=== PATIENT | female | born 1990 | race Caucasian/White ===

== ENCOUNTER 2016-07-06 21:32 | Inpatient (IN) | payer BC, OTHER ==
[~2016-07-06] VITALS: Ht 162.6 cm; Wt 61.7 kg
[~2016-07-06 21:32] MED LIST: PARO20TA3 PO; POTA20TA4 PO
[2016-07-06 21:45] VITALS: BP 106/58
[2016-07-06 22:20] LABS: BASO # 0.1 x10^3/uL (0.0-0.2); BASO % 1 % (0-3); EOS # 0.1 x10^3/uL (0.0-0.7); EOS % 1 % (0-3); HEMATOCRIT 41.1 % (36.0-47.0); HEMOGLOBIN 13.9 g/dL (12.0-15.5); LYMPH # 2.7 x10^3/uL (1.0-4.8); LYMPH % 27 % (24-48); MEAN CORPUSCULAR HEMOGLOBIN 31 pg (25-35); MEAN CORPUSCULAR HGB CONC 34 g/dL (31-37); MEAN CORPUSCULAR VOLUME 93 fL (79-100); MONO # 0.7 x10^3/uL (0.0-1.1); MONO % 7 % (0-9); NEUT # 6.4 x10^3uL (1.8-7.7); NEUT % 64 % (31-73); PLATELET COUNT 198 x10^3/uL (140-400); RED BLOOD COUNT 4.44 x10^6/uL (3.50-5.40); WHITE BLOOD COUNT 9.9 x10^3/uL (4.0-11.0)
--- NOTE | 2016-07-06 22:23 | EKG ---
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
[2016-07-06 22:35] LABS: ALBUMIN 4.5 g/dL (3.4-5.0); ALBUMIN/GLOBULIN RATIO 1.4 (1.0-1.7); CALCIUM 9.2 mg/dL (8.5-10.1); CREATININE 0.9 mg/dL (0.6-1.0); GFR 75.1; POTASSIUM 3.4 mmol/L (3.5-5.1); TOTAL BILIRUBIN 0.4 mg/dL (0.2-1.0); TOTAL PROTEIN 7.8 g/dL (6.4-8.2)
[2016-07-06] MEDS: IV NORMAL SALINE 1,000ML 1,000 ML IV SCH (23:28)
[2016-07-07] MEDS ORDERED: ALBU8.5H3 INH (00:37)
[2016-07-07] MEDS ORDERED: PROP20TA PO (00:37)
[2016-07-07] MEDS ORDERED: ALPR0.5T PO (00:37)
[2016-07-07 01:00] VITALS: BP 120/62
[2016-07-07 07:52] LABS: CALCIUM 8.6 mg/dL (8.5-10.1); CREATININE 0.7 mg/dL (0.6-1.0); GFR 100.4; POTASSIUM 3.7 mmol/L (3.5-5.1)
[2016-07-07] MEDS ORDERED: PAROXETINE 10 MG TABLET. PO SCH (09:00)
[2016-07-07] MEDS ORDERED: PROPRANOLOL 20 MG TABLET. PO SCH (09:00)
[2016-07-07] MEDS ORDERED: ONDANSETRON PF 4 MG/2 ML VIAL. IV PRN (10:00)
[2016-07-07] MEDS ORDERED: IOHEXOL 240 MG/ML 50ML VIAL. PO ONE (10:30)
[2016-07-07] MEDS ORDERED: CONTRAST GIVEN MC PRN (10:30)
[2016-07-07] MEDS ORDERED: IOHEXOL 300 MG/ML 75 ML VIAL. IV ONE (10:30)
[2016-07-07 12:30] VITALS: BP 112/68
--- NOTE | 2016-07-07 13:47 | RAD ---
CT of the abdomen and pelvis with contrast, 07/07/2016: History: Abdominal pain Multidetector CT imaging was performed following oral and IV administration of contrast. No hepatic abnormality is detected. The gallbladder is unremarkable. The pancreas cannot be clearly from the incompletely opacified bowel. No pancreatic mass is identified. The spleen is of normal size. No renal or adrenal abnormality is detected. The aorta is unremarkable. No abdominal or pelvic adenopathy is seen. An IUD is present centrally in the uterus. A small rim-like area of enhancement in the left adnexa is compatible with a collapsing ovarian cyst. It measures 2.1 cm. There is a trace amount of free fluid in the deep pelvis. This amount of fluid can be on a physiologic basis. The bowel loops are not dilated. The appendix is not clearly visualized. No dilated appendix or pericecal inflammatory process is seen. The urinary bladder is mildly distended. IMPRESSION: 1. An IUD is present in the uterus. 2. Small left ovarian cyst. 3. Tiny amount of free fluid in the pelvis which may be physiologic. 4. The abdomen and pelvis are otherwise unremarkable. PQRS Compliance Statement: One or more of the following individualized dose reduction techniques were utilized for this examination: 1. Automated exposure control 2. Adjustment of the mA and/or kV according to patient size 3. Use of iterative reconstruction technique
[2016-07-07] MEDS: IV NORMAL SALINE 1,000ML 1,000 ML IV SCH (13:57)
[2016-07-07 14:53] VITALS: BP 100/62
[2016-07-07 16:33] LABS: FREE T4 1.15 ng/dL (0.76-1.46); THYROID STIM HORMONE (TSH) 3.945 uIU/mL (0.358-3.740)
== END 2016-07-07 17:13 | disposition home or self-care (01) | DRG 392 ==
LOC: 1 SOUTH 21:32
PROVIDERS: ADMIT Family Medicine; ATTEND Family Medicine
DX: K52.9 Noninfective gastroenteritis and colitis, unspecified (principal); R42 Dizziness and giddiness; R00.0 Tachycardia, unspecified; R53.1 Weakness; F40.01 Agoraphobia with panic disorder; F41.9 Anxiety disorder, unspecified; E16.2 Hypoglycemia, unspecified; J45.909 Unspecified asthma, uncomplicated; F17.210 Nicotine dependence, cigarettes, uncomplicated
CPT/HCPCS: 36415; 74177; 80048; 80053; 83605; 83690; 84439; 84443; 84481; 85027; 85379; 93005; Q9966; Q9967; J7030

== ENCOUNTER → 2016-08-23 | Outpatient (CLI) | payer OTHER ==
[~2016-08-23] MED LIST changes: +ALBU8.5H8 INH; +ALPR0.5T PO; +PROP20TA PO
--- NOTE | 2016-08-23 09:50 | CARD ---
APPROVED REPORT EXAM: Two-dimensional and M-mode echocardiogram with Doppler and color Doppler. Other Information Quality : GoodHR: 80bpm Rhythm : NSR INDICATION Cardiac arrhythmia 2D DIMENSIONS RVDd2.4 (2.9-3.5cm)Left Atrium(2D)2.4 (1.6-4.0cm) IVSd0.9 (0.7-1.1cm)Aortic Root(2D)2.4 (2.0-3.7cm) LVDd4.2 (3.9-5.9cm)LVOT Diameter2.1 (1.8-2.4cm) PWd0.9 (0.7-1.1cm)LVDs2.7 (2.5-4.0cm) FS (%) 35.2 %SV50.4 ml LVEF(%)64.9 (>50%) Aortic Valve AoV Peak Rikki.125.2cm/sAoV VTI24.4cm AO Peak GR.6.3mmHgLVOT Peak Rikki.102.4cm/s LVOT VTI 21.51cmAO Mean GR.3mmHg COLT (VMAX)2.60az1WTI (VTI)2.92cm2 Mitral Valve MV E Gyvhirce83.2cm/sMV DECEL NQDK012sm MV A Rlvegipx80.2cm/sE/A Ratio1.2 MV A Qhogreca85uk Pulmonary Valve PV Peak Ptzwmots07.3cm/sPV Peak Grad.4mmHg Tricuspid Valve TR P. Gswsrnwm724kn/sTR Peak Gr.19mmHg Pulmonary Vein S1 Fyzbvsry70.8cm/sD2 Eyybzjst71.9cm/s LEFT VENTRICLE The left ventricle is normal size. There is normal left ventricular wall thickness. The left ventricu lar systolic function is normal and the ejection fraction is within normal range. The Ejection Fracti on is 55-60%. There is normal LV segmental wall motion. The left ventricular diastolic function and f illing is normal for age. RIGHT VENTRICLE The right ventricle is normal size. There is normal right ventricular wall thickness. The right ventr icular systolic function is normal. ATRIA The left atrium size is normal. The right atrium size is normal. The interatrial septum is intact wit h no evidence for an atrial septal defect or patent foramen ovale as noted on 2-D or Doppler imaging. AORTIC VALVE The aortic valve is normal in structure and function. Doppler and Color Flow revealed no significant aortic regurgitation. There is no significant aortic valvular stenosis. MITRAL VALVE The mitral valve is normal in structure and function. There is no evidence of mitral valve prolapse. There is no mitral valve stenosis. Doppler and Color Flow revealed no mitral valve regurgitation note d. TRICUSPID VALVE Doppler and Color Flow revealed physiologic tricuspid regurgitation.The pulmonary artery systolic pre ssure is estimated at 22 mmHg. PULMONIC VALVE Doppler and Color Flow revealed trace pulmonic valvular regurgitation. There is no pulmonic valvular stenosis. GREAT VESSELS The aortic root is normal in size. The ascending aorta is normal in size. The IVC is normal in size a nd collapses >50% with inspiration. PERICARDIAL EFFUSION There is no evidence of significant pericardial effusion. Critical Notification Critical Value: No <Conclusion> The left ventricular systolic function is normal and the ejection fraction is within normal range. Th e Ejection Fraction is 55-60%. There is normal LV segmental wall motion. No significant valvular disease. No obvious structural abnormalities noted.
== END | disposition home or self-care (01) ==
LOC: ECHO 08:20
PROVIDERS: ATTEND Internal Medicine Cardiovascular Disease
DX: I49.9 Cardiac arrhythmia, unspecified (principal); I07.1 Rheumatic tricuspid insufficiency; I31.3 Pericardial effusion (noninflammatory)
CPT/HCPCS: 93306

== ENCOUNTER 2016-09-13 16:16 | Emergency (ER) | payer OTHER ==
[~2016-09-13] VITALS: Ht 162.6 cm; Wt 61.7 kg
[2016-09-13 16:20] VITALS: BP 121/77
[2016-09-13] MEDS ORDERED: ONDANSETRON PF 4 MG/2 ML VIAL. IV ONE ×2 (17:45→19:30)
[2016-09-13] MEDS ORDERED: fentaNYL PF 100 MCG/2 ML VIAL IV ONE (17:45)
[2016-09-13] MEDS ORDERED: IV NORMAL SALINE 1,000ML 1,000 ML IV ONE (17:45)
--- NOTE | 2016-09-13 17:55 | PHYS DOC ---
General Chief Complaint: HEADACHE Stated Complaint: HEADACHE Time Seen by MD: 16:32 Source: patient Exam Limitations: no limitations Problems: (ADILENE MARTINEZ MD) Time Seen by MD: 19:09 Problems: (KOFFI WAY MD) History of Present Illness Initial Comments Patient with complaints of persistent headache for the last 7 days. Patient was sent over from her physicians office for further evaluation with CT and any pertinent blood work including a TSH. Patient states that she has been taking Ibuprofen 200-400mg at a time 2-3 x per day for the last 7 days. She states minimal to no relief with this medication. 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 She states that yesterday the pain was so intense that she took her 's hydrocodone 1/2 tablet and gave her moderate relief for 2 hours and then it recurred. Patient also states that she regularly uses Afrin nasal spray for nasal congestion. She states that she has had associated dizziness/lightheaded with episodes of spinning. She states that she has had tingling to the distal fingertips of all five fingers, without loss of motion and without loss of strength. She reports intermittent blurry vision. She denies visual loss.] Denies ear pain, drainage or loss of hearing. Denies any rash Denies any recent exposure to bug bites/ticks etc. She has intermittent nausea without emesis and no diarrhea. She denies abdominal pain or diarrhea She has the mirena and states she has had spotting bleeding for the last few weeks which she states is not normal for her. Timing/Duration: 1 week Severity/Quality: moderate, constant, pressure, throbbing (present to the frontal and temporal regions. Without radiation of the pain) Location: frontal, temporal Prior Headaches/Recent Trauma: no recent headache/trauma Modifying Factors: worse with exposure to light Associated Symptoms: fatigue, nasal congestion, vision changes (ADILENE MARTINEZ MD) Allergies: Coded Allergies: No Known Drug Allergies (Unverified , 11/25/15) Past Medical History Medical History: no pertinent history Surgical History: no surgical history, other (ADILENE MARTINEZ MD) Family History Significant Family History: no pertinent family hx (ADILENE MARTINEZ MD) Social History Alcohol: none Drugs: none (ADILENE MARTINEZ MD) Review of Systems Constitutional: malaise, weakness Eyes: denies blindness, blurred vision, denies decreased acuity, denies foreign body sensation, denies inflammation, denies pain, photophobia, denies previous injury, denies shadows Ears, Nose, Mouth, Throat: no symptoms reported Respiratory: no symptoms reported Cardiovascular: no symptoms reported Gastrointestinal: denies abdominal pain, denies constipation, denies diarrhea, nausea, denies vomiting Genitourinary: no symptoms reported Musculoskeletal: back pain (right lower back pain), denies joint pain, denies joint swelling, muscle stiffness (no associated joint pain) Skin: no symptoms reported Psychiatric/Neurological: anxiety (has had recent hospitalization for anxiety at [facility]. Recently started on propranolol and Xanax) All Other Systems: Reviewed and Negative (ADILENE MARTINEZ MD) Physical Exam General Appearance: WD/WN, no apparent distress HEENT: PERRL/EOMI, normal ENT inspection, TMs normal, pharynx normal Neck: non-tender, full range of motion, supple, normal inspection, trachea midline Cardiovascular: normal peripheral pulses, regular rate, rhythm, no edema, no gallop, no JVD, no murmur Respiratory: chest non-tender, lungs clear, normal breath sounds, no respiratory distress Gastrointestinal: normal bowel sounds, non tender, soft, no organomegaly Back: normal inspection, no CVA tenderness, no vertebral tenderness Extremities: normal range of motion, non-tender, normal inspection Psychiatric: alert, oriented x 3, depressed affect Cranial Nerves: normal hearing, normal speech, PERRL Coordination/Gait: normal finger to nose, normal gait, negative Romberg's sign Motor/Sensory: no motor deficit, no sensory deficit, no pronator drift, negative Babinski's sign Skin: warm/dry, normal color Lymphatic: no adenopathy (ADILENE MARTINEZ MD) Orders, Labs, Meds Patient has CT head pending. Labs pending IV medication and IV NS running. Reevaluation following resulting of all studies. Patient hand of to Dr. Way at 1800 (ADILENE MARTINEZ MD) Orders, Labs, Meds Return arrival reviewed vital signs, document of note, history from a prior physician progress note from the PA earlier today. Patient's CAT scan is negative patient slept her work is unremarkable urinalysis is still pending. Patient's headache is now returned is 3 of 10 same location of the right parietal lobe not worse of life at sudden onset but I went and talked to her about my treatment options and plan I do not use narcotics for the rebound phenomenon. Patient's typical experience. So we will go ahead and attempt Tylenol Toradol and some Benadryl. And see if she feels. Time nowPatient tells me that their sumptoms given during CC are improved. We reviewed labs and radiology reports with patient and any family at bedside. Patient's pain is now a 1 out of 10 at 8:08 PM patient was markedly better with IV Benadryl, Toradol and Tylenol. We'll provide the same to go home with. Urinalysis does states she is not . Impression tension headache possible narcotic rebound headache. Position: PCP follow-up 24-48 hours with neurology referral. Precautions given about possible other etiologies of headache and asked to return for increasing symptoms, focal neurologic deficits, or if she has any questions or concerns. (KOFFI WAY MD) ADILENE MARTINEZ MD Sep 13, 2016 17:[address] MD Sep 13, 2016 19:13
[2016-09-13 18:01] LABS: BASO % 1 % (0-3); EOS # 0.1 x10^3/uL (0.0-0.7); EOS % 1 % (0-3); HEMATOCRIT 39.9 % (36.0-47.0); HEMOGLOBIN 13.7 g/dL (12.0-15.5); LYMPH # 1.6 x10^3/uL (1.0-4.8); LYMPH % 17 % (24-48); MEAN CORPUSCULAR HEMOGLOBIN 31 pg (25-35); MEAN CORPUSCULAR HGB CONC 34 g/dL (31-37); MEAN CORPUSCULAR VOLUME 91 fL (79-100); MONO # 0.5 x10^3/uL (0.0-1.1); MONO % 5 % (0-9); NEUT # 7.3 x10^3uL (1.8-7.7); NEUT % 77 % (31-73); PLATELET COUNT 209 x10^3/uL (140-400); RED CELL DISTRIBUTION WIDTH 12.7 % (11.5-14.5); WHITE BLOOD COUNT 9.5 x10^3/uL (4.0-11.0)
--- NOTE | 2016-09-13 18:05 | RAD ---
Exam performed: CT scan of the head without contrast. Date of Service: 09/13/2016. Comparison: None available. Clinical History: Headache for one week with visual disturbance. Technique: Helical acquisitions are obtained from the foramen magnum to the vertex without intravenous administration of contrast. Findings: The ventricles are midline without evidence of dilatation. Normal whitehead-white differentiation is maintained. There is no extra axial fluid collection, intraparenchymal hemorrhage or mass lesion. The visualized portions of the orbits, paranasal sinuses and the mastoid air cells appear clear. The calvarium is intact. Impression: 1. No acute intracranial process detected. PQRS Compliance Statement: One or more of the following individualized dose reduction techniques were utilized for this examination: 1. Automated exposure control 2. Adjustment of the mA and/or kV according to patient size 3. Use of iterative reconstruction technique Electronically signed by: Lore Parish MD (09/13/2016 6:02 PM)
[2016-09-13 18:11] LABS: ALBUMIN 4.4 g/dL (3.4-5.0); ALBUMIN/GLOBULIN RATIO 1.3 (1.0-1.7); CALCIUM 9.3 mg/dL (8.5-10.1); CREATININE 0.8 mg/dL (0.6-1.0); POTASSIUM 3.5 mmol/L (3.5-5.1); TOTAL BILIRUBIN 0.3 mg/dL (0.2-1.0); TOTAL PROTEIN 7.7 g/dL (6.4-8.2)
[2016-09-13] MEDS ORDERED: DEXAMETHASONE SOD PHOS 10 MG/ML VIAL IV ONE (19:30)
[2016-09-13] MEDS ORDERED: diphenhydrAMINE 50 MG/ML VIAL IVP ONE (19:30)
[2016-09-13] MEDS ORDERED: KETOROLAC 30 MG/ML VIAL. IV ONE (19:30)
[2016-09-13] MEDS ORDERED: NAPR500T PO (19:56)
[2016-09-13] MEDS ORDERED: PROC10TA57 PO (19:56)
[2016-09-13 19:59] LABS: BACTERIA,URINE FEW /HPF (0-FEW); BILIRUBIN,URINE NEG (NEG); CLARITY,URINE CLEAR; COLOR,URINE YELLOW; GLUCOSE,URINE NEG (NEG); NITRITE,URINE NEG (NEG); RBC,URINE 0 /HPF (0-2); SQUAMOUS EPITHELIAL CELL,UR OCC /LPF; UROBILINOGEN,URINE 0.2 mg/dL (0.2 mg/dL); WBC,URINE OCC /HPF (0-4)
== END 2016-09-13 20:00 | disposition home or self-care (01) ==
LOC: ER 16:16
DX: G44.209 Tension-type headache, unspecified, not intractable (principal); R42 Dizziness and giddiness; R20.2 Paresthesia of skin; R11.0 Nausea
CPT/HCPCS: 36415; 70450; 80053; 81001; 81025; 84443; 85027; 96361; 96374; 96375; 96376; 99285; J1100; J1200; J1885; J2405; J3010; J7030

== ENCOUNTER 2017-03-25 19:46 | Emergency (ER) | payer OTHER ==
[~2017-03-25] VITALS: Ht 162.6 cm; Wt 63.0 kg
[~2017-03-25 19:46] MED LIST changes: +NAPR-683 PO; +PROC10TA57 PO
[2017-03-25] MEDS ORDERED: ONDANSETRON PF 4 MG/2 ML VIAL. IV ONE (20:45)
[2017-03-25] MEDS ORDERED: SUMAtriptan. 6 MG/0.5 ML VIAL SQ ONE (20:45)
[2017-03-25] MEDS ORDERED: IV RINGERS SOLUTION,LACTATED 1,000 ML IV SCH (20:45)
--- NOTE | 2017-03-25 20:45 | ED.ADGEN ---
Past History Past Medical History: Anxiety, Other Past Surgical History: No Surgical History Alcohol Use: None Drug Use: None Adult General Chief Complaint Chief Complaint "My migraine will not go away... HPI HPI Patient is a 26 year old female who presents with above hx and complaints. Pt. reports nausea and frontal scalp headache. Patient states it feels like a typical migraine except more severe and did not go away with Tylenol and ibuprofen. No history of trauma. 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 No recent travel. No history of trauma. Prior CTs have been normal. Prior workups for her migraines have been without etiology. Review of Systems Review of Systems Constitutional: Denies fever or chills [] Eyes: Nochange in visual acuity, redness, or eye pain. Photophobia HENT: Denies nasal congestion or sore throat [] Respiratory: Denies cough or shortness of breath [] Cardiovascular: No additional information not addressed in HPI [] GI: Denies abdominal pain, vomiting, bloody stools or diarrhea []nausea : Denies dysuria or hematuria [] Musculoskeletal: Denies back pain or joint pain [] Integument: Denies rash or skin lesions [] Neurologic: Denies headache, focal weakness or sensory changes [] Endocrine: Denies polyuria or polydipsia [] All other systems were reviewed and found to be within normal limits, except as documented in this note. Family History Family History Noncontributory Current Medications Current Medications Current Medications Medications (Trade) Dose Ordered Sig/Brant Start Time Stop Time Status Last Admin Dose Admin Diphenhydramine HCl (Benadryl) 25 mg 1X ONCE 03/25/17 21:00 03/25/17 21:01 DC 03/25/17 21:48 25 MG Ketorolac Tromethamine (Toradol) 30 mg 1X ONCE 03/25/17 23:15 03/25/17 23:21 DC 03/25/17 23:47 30 MG Lactated Ringer's 1,000 ml @ 1,000 mls/hr Q1H 03/25/17 20:45 03/25/17 21:56 DC 03/25/17 21:47 1,000 MLS/HR Ondansetron HCl (Zofran) 8 mg 1X ONCE 03/25/17 20:45 03/25/17 20:52 DC 03/25/17 21:47 8 MG Orphenadrine Citrate (Norflex) 60 mg 1X ONCE 03/26/17 00:45 03/26/17 01:34 DC 03/26/17 00:43 60 MG Sodium Chloride 50 ml @ As Directed STK-MED ONCE 03/25/17 22:20 03/25/17 22:21 DC Sumatriptan Succinate (Imitrex) 6 mg 1X ONCE 03/25/17 20:45 03/25/17 20:52 DC 03/25/17 21:48 6 MG Valproic Acid (Depacon) 500 mg STK-MED ONCE 03/25/17 21:43 03/25/17 21:44 DC Valproic Acid 500 mg/Sodium Chloride 55 ml @ 55 mls/hr 1X STAT 03/25/17 22:08 03/25/17 23:07 DC 03/25/17 22:08 55 MLS/HR Allergies Allergies Allergies Coded Allergies Type Severity Reaction Last Updated Verified No Known Drug Allergies 11/25/15 No Physical Exam Physical Exam Constitutional: Well developed, well nourished, in moderate distress, non-toxic appearance. [] HENT: Normocephalic, atraumatic, bilateral external ears normal, oropharynx moist, no oral exudates, nose normal. [] Eyes: PERRLA, EOMI, conjunctiva normal, no discharge. No field deficits. Fundus benign. Iris consensual light reflex. Neck: Normal range of motion, no tenderness, supple, no stridor. [] Cardiovascular:Heart rate regular rhythm, no murmur [] Lungs & Thorax: Bilateral breath sounds clear to auscultation [] Abdomen: Bowel sounds normal, soft, no tenderness, no masses, no pulsatile masses. [] Skin: Warm, dry, no erythema, no rash. [] Back: Lt Lumbar muscle tenderness, no CVA tenderness. [] Extremities: No tenderness, no cyanosis, no clubbing, ROM intact, no edema. [] Neurologic: Alert and oriented X 3, normal motor function, normal sensory function, no focal deficits noted. DTRs +2. Distal sensation intact. Psychologic: Affect normal, judgement normal, mood normal. [] Current Patient Data Lab Results Laboratory Tests Test 03/25/17 21:07 03/25/17 21:17 03/25/17 21:27 03/25/17 22:45 Urine Collection Type Unknown Urine Color Yellow Urine Clarity Hazy Urine pH 6.5 Urine Specific [place] 1.020 Urine Protein Neg (NEG-TRACE) Urine Glucose (UA) Neg mg/dL (NEG) Urine Ketones (Stick) 15 mg/dL (NEG) Urine Blood Neg (NEG) Urine Nitrite Neg (NEG) Urine Bilirubin Neg (NEG) Urine Urobilinogen Dipstick 1 mg/dL (0.2 mg/dL) Urine Leukocyte Esterase Neg (NEG) Urine RBC Occ /HPF (0-2) Urine WBC Occ /HPF (0-4) Urine Squamous Epithelial Cells Few /LPF Urine Bacteria 0 /HPF (0-FEW) Urine Mucus Slight /LPF Prothrombin Time 10.7 SEC (9.4-11.4) Prothrombin Time INR 1.0 (0.9-1.1) PTT 29 SEC (23-33) White Blood Count 7.8 x10^3/uL (4.0-11.0) Red Blood Count 4.26 x10^6/uL (3.50-5.40) Hemoglobin 13.2 g/dL (12.0-15.5) Hematocrit 39.1 % (36.0-47.0) Mean Corpuscular Volume 92 fL (79-100) Mean Corpuscular Hemoglobin 31 pg (25-35) Mean Corpuscular Hemoglobin Concent 34 g/dL (31-37) Red Cell Distribution Width 13.2 % (11.5-14.5) Platelet Count 221 x10^3/uL (140-400) Neutrophils (%) (Auto) 64 % (31-73) Lymphocytes (%) (Auto) 28 % (24-48) Monocytes (%) (Auto) 6 % (0-9) Eosinophils (%) (Auto) 1 % (0-3) Basophils (%) (Auto) 1 % (0-3) Neutrophils # (Auto) 5.0 x10^3uL (1.8-7.7) Lymphocytes # (Auto) 2.2 x10^3/uL (1.0-4.8) Monocytes # (Auto) 0.5 x10^3/uL (0.0-1.1) Eosinophils # (Auto) 0.1 x10^3/uL (0.0-0.7) Basophils # (Auto) 0.1 x10^3/uL (0.0-0.2) Erythrocyte Sedimentation Rate 2 (0-25) Maternal Serum HCG Beta Subunit < 1 mIU/mL (0-6) Sodium Level 144 mmol/L (136-145) Potassium Level 3.8 mmol/L (3.5-5.1) Chloride Level 106 mmol/L (98-107) Carbon Dioxide Level 27 mmol/L (21-32) Anion Gap 11 (6-14) Blood Urea Nitrogen 10 mg/dL (7-20) Creatinine 0.8 mg/dL (0.6-1.0) Estimated GFR (Cockcroft-Gault) 85.4 Glucose Level 88 mg/dL (70-99) Calcium Level 9.3 mg/dL (8.5-10.1) Total Bilirubin 0.2 mg/dL (0.2-1.0) Direct Bilirubin 0.1 mg/dL (0.0-0.2) Aspartate Amino Transferase (AST) 18 U/L (15-37) Alanine Aminotransferase (ALT) 21 U/L (14-59) Alkaline Phosphatase 48 U/L (46-116) Total Protein 7.5 g/dL (6.4-8.2) Albumin 4.3 g/dL (3.4-5.0) POC Urine HCG, Qualitative hcg negative (Negative) EKG EKG [] Radiology/Procedures Radiology/Procedures My interpretation CT head shows no mass, edema, shift, bleed, or fracture.[] Course & Med Decision Making Course & Med Decision Making Pertinent Labs and Imaging studies reviewed. (See chart for details). Push fluids. May take Imitrex 100 mg at the beginning headache. No more than 200 mg in a 24-hour period. Zofran 8 for nausea and vomiting.[] Up to 4 times a day. Vicoprofen up to 4 times a day for marked discomfort. Follow-up primary care. Final Impression Final Impression 1. Migraine[] Problems: Dragon Disclaimer Dragon Disclaimer This electronic medical record was generated, in whole or in part, using a voice recognition dictation system. HARIS LARA MD Mar 25, 2017 20:45
[2017-03-25] MEDS ORDERED: VALPROATE SODIUM 500 MG in IV NORMAL SALINE 50ML 50 ML IV STA ×2 (20:50→22:08)
[2017-03-25] MEDS ORDERED: diphenhydrAMINE 50 MG/ML VIAL IVP ONE (21:00)
--- NOTE | 2017-03-25 21:19 | RAD ---
CT Head without contrast 03/25/2017 Clinical Indication: Seizure , severe headache Comparison: CT head 09/13/2016 Technique: Multiple CT images of the head were obtained without contrast. *One or more of the following individualized dose reduction techniques were utilized for this examination: 1. Automated exposure control. 2. Adjustment of the mA and/or kV according to patient size. 3. Use of iterative reconstruction technique. Findings: Ventricles and subarachnoid spaces are normal in size and configuration. No midline shift or mass effect. No acute intracranial hemorrhage or extra-axial fluid collection. The whitehead-white matter interfaces are maintained. Impression: No acute intracranial hemorrhage. Electronically signed by: Zak Ritter MD (03/25/2017 9:16 PM) [facility]
[2017-03-25] MEDS ORDERED: VALPROATE SODIUM 500 MG/5 ML VIAL IV ONE (21:43)
[2017-03-25] MEDS ORDERED: IV NORMAL SALINE 50ML 50 ML ONE ×2 (21:43→22:20)
[2017-03-25 21:59] LABS: BASO # 0.1 x10^3/uL (0.0-0.2); BASO % 1 % (0-3); EOS # 0.1 x10^3/uL (0.0-0.7); EOS % 1 % (0-3); HEMATOCRIT 39.1 % (36.0-47.0); HEMOGLOBIN 13.2 g/dL (12.0-15.5); LYMPH # 2.2 x10^3/uL (1.0-4.8); LYMPH % 28 % (24-48); MEAN CORPUSCULAR HEMOGLOBIN 31 pg (25-35); MEAN CORPUSCULAR HGB CONC 34 g/dL (31-37); MEAN CORPUSCULAR VOLUME 92 fL (79-100); MONO # 0.5 x10^3/uL (0.0-1.1); MONO % 6 % (0-9); NEUT % 64 % (31-73); PLATELET COUNT 221 x10^3/uL (140-400); RED BLOOD COUNT 4.26 x10^6/uL (3.50-5.40); RED CELL DISTRIBUTION WIDTH 13.2 % (11.5-14.5); WHITE BLOOD COUNT 7.8 x10^3/uL (4.0-11.0)
[2017-03-25 22:03] LABS: ALBUMIN 4.3 g/dL (3.4-5.0); CALCIUM 9.3 mg/dL (8.5-10.1); CREATININE 0.8 mg/dL (0.6-1.0); DIRECT BILIRUBIN 0.1 mg/dL (0.0-0.2); GFR 85.4; POTASSIUM 3.8 mmol/L (3.5-5.1); TOTAL BILIRUBIN 0.2 mg/dL (0.2-1.0); TOTAL PROTEIN 7.5 g/dL (6.4-8.2)
[2017-03-25 22:21] LABS: CLARITY,URINE HAZY; COLOR,URINE YELLOW
[2017-03-25 22:22] LABS: BACTERIA,URINE 0 /HPF (0-FEW); BILIRUBIN,URINE NEG (NEG); GLUCOSE,URINE NEG (NEG); NITRITE,URINE NEG (NEG); RBC,URINE OCC /HPF (0-2); SQUAMOUS EPITHELIAL CELL,UR FEW /LPF; UROBILINOGEN,URINE 1 mg/dL (0.2 mg/dL); WBC,URINE OCC /HPF (0-4)
[2017-03-25] MEDS ORDERED: KETOROLAC 30 MG/ML VIAL. IV ONE (23:15)
[2017-03-26 00:10] LABS: SEDIMENTATION RATE 2 (0-25)
[2017-03-26] MEDS ORDERED: SUMA100T3 PO (00:12)
[2017-03-26] MEDS ORDERED: ONDA8TAB12 PO (00:12)
[2017-03-26] MEDS ORDERED: HYDR-79 PO (00:12)
[2017-03-26] MEDS ORDERED: ORPHENADRINE CITRATE 60 MG/2 ML VIAL. IV ONE (00:45)
[2017-03-26 01:25] VITALS: BP 114/66
== END 2017-03-26 02:30 | disposition home or self-care (01) ==
LOC: ER 19:46
DX: G43.909 Migraine, unspecified, not intractable, without status migrainosus (principal); F41.9 Anxiety disorder, unspecified
CPT/HCPCS: 36415; 70450; 80048; 80076; 81001; 81025; 84702; 85025; 85610; 85651; 85730; 96365; 96366; 96372; 96375; 99285; J1200; J1885; J2360; J2405; J3030; J3490; J7120

== ENCOUNTER 2017-05-09 19:30 | Emergency (ER) | payer OTHER ==
[~2017-05-09] VITALS: Ht 162.6 cm; Wt 62.6 kg
[~2017-05-09 19:30] MED LIST changes: +HYDR-79 PO; +ONDA8TAB12 PO; +SUMA100T3 PO
--- NOTE | 2017-05-09 20:44 | PHYS DOC ---
Past History Past Medical History: Anxiety, Depression, Migraines, Other Past Surgical History: No Surgical History Smoking: Cigarettes Alcohol Use: None Drug Use: None Adult General Chief Complaint Chief Complaint: FLU SYMPTOM HPI HPI 26-year-old male patient complaining of flulike symptoms for the last 3 days with subjective fever, productive cough with clear sputum, nasal congestion, shortness of breath during episodes of cough, generalized weakness and body ache , sore throat, nausea without vomiting and diarrhea. She had sick contacts at home and work. Review of Systems Review of Systems Constitutional: Reports fever and chills Eyes: Denies change in visual acuity, redness, or eye pain [] HENT: Postnasal congestion or sore throat Respiratory: Post cough and shortness of evidence Cardiovascular: No additional information not addressed in HPI [] GI: Denies abdominal pain,vomiting, bloody stools or diarrhea ,reports nausea[] : Denies dysuria or hematuria [] Musculoskeletal: Denies back pain or joint pain [] Integument: Denies rash or skin lesions [] Neurologic: Denies headache, focal weakness or sensory changes [] Endocrine: Denies polyuria or polydipsia [] All other systems were reviewed and found to be within normal limits, except as documented in this note. Allergies Allergies Allergies Coded Allergies Type Severity Reaction Last Updated Verified No Known Drug Allergies 11/25/15 No Physical Exam Physical Exam Constitutional: Well developed, well nourished, mild distress, non-toxic appearance. [] HENT: Normocephalic, atraumatic, bilateral external ears normal, oropharynx moist, pharyngeal erythema, no oral exudates, nose normal. [] Eyes: PERRLA, EOMI, conjunctiva normal, no discharge. [] Neck: Normal range of motion, no tenderness, supple, no stridor. [] Cardiovascular:Heart rate regular rhythm, no murmur [] Lungs & Thorax: Bilateral breath sounds clear to auscultation [] Abdomen: Bowel sounds normal, soft, no tenderness, no masses, no pulsatile masses. [] Skin: Warm, dry, no erythema, no rash. [] Back: No tenderness, no CVA tenderness. [] Extremities: No tenderness, no cyanosis, no clubbing, ROM intact, no edema. [] Neurologic: Alert and oriented X 3, normal motor function, normal sensory function, no focal deficits noted. [] Psychologic: Affect normal, judgement normal, mood normal. [] EKG EKG [] Radiology/Procedures Radiology/Procedures [] Course & Med Decision Making Course & Med Decision Making Pertinent reviewed. (See chart for details) [] Dragon Disclaimer Dragon Disclaimer This electronic medical record was generated, in whole or in part, using a voice recognition dictation system. Departure Departure: Impression: Primary Impression: Upper respiratory infection Additional Impression: Tobacco abuse counseling Disposition: HOME, SELF-CARE (at 210) Condition: STABLE Referrals: ADDIE ASCENCIO MD (PCP) Patient Instructions: Upper Respiratory Infection, Adult Additional Instructions: Drink plenty of liquids Follow-up with your primary care physician in 3-5 days Return to ER if not getting better Quit smoking Scripts Hydrocodone/Chlorphen P-Stirex (Tussionex Pennkinetic Susp) 115 Ml Burna.er.12h 5 ML PO BID Y for COUGH, #120 ML Prov: XENIA MENDENHALL MD 05/09/17 Problem Qualifiers XENIA MENDENHALL MD May 09, 2017 20:44
[2017-05-09 20:51] LABS: INFLUENZA A PATIENT NEGATIVE (NEGATIVE); INFLUENZA B PATIENT NEGATIVE (NEGATIVE)
[2017-05-09] MEDS ORDERED: BENZONATATE 100 MG CAPSULE. PO ONE (21:00)
[2017-05-09] MEDS ORDERED: HYDR115S2 PO (21:07)
[2017-05-09 21:26] VITALS: BP 111/60
== END 2017-05-09 21:26 | disposition home or self-care (01) ==
LOC: ER 19:30
DX: J06.9 Acute upper respiratory infection, unspecified (principal); F17.210 Nicotine dependence, cigarettes, uncomplicated; G43.909 Migraine, unspecified, not intractable, without status migrainosus; Z71.6 Tobacco abuse counseling
CPT/HCPCS: 87804; 99284

== ENCOUNTER 2017-05-25 19:00 | Emergency (ER) | payer OTHER ==
[~2017-05-25] VITALS: Ht 162.6 cm; Wt 62.6 kg
[~2017-05-25 19:00] MED LIST changes: +HYDR115S2 PO
--- NOTE | 2017-05-25 20:14 | PHYS DOC ---
Past History Past Medical History: Anxiety, Asthma, Depression, Migraines, Seizure, Other Past Surgical History: No Surgical History Smoking: Cigarettes Alcohol Use: None Drug Use: None Adult General Chief Complaint Chief Complaint: ANKLE PROBLEM HPI HPI Patient is a 26 year old female who presents with complaint of left ankle and foot pain. Patient states that she injured her ankle approximately one week ago. Patient states that she has been taking ibuprofen and Tylenol for her symptoms with no relief. Patient states that the pain is along the inner aspect of her right ankle extends towards the medial aspect of her right foot. The patient states that she is having pain with weightbearing. Patient did not receive medical attention upon initially injuring her foot, however since it has not gotten any better she came in to be evaluated today. Review of Systems Review of Systems Constitutional: Denies fever or chills [] Musculoskeletal: Left foot pain[] Integument: Denies rash or skin lesions [] Neurologic: Denies headache, focal weakness or sensory changes [] All other systems were reviewed and found to be within normal limits, except as documented in this note. Allergies Allergies Allergies Coded Allergies Type Severity Reaction Last Updated Verified No Known Drug Allergies 11/25/15 No Physical Exam Physical Exam Constitutional: Well developed, well nourished, no acute distress, non-toxic appearance. [] HENT: Normocephalic, atraumatic, bilateral external ears normal, oropharynx moist, no oral exudates, nose normal. [] Back: No tenderness, no CVA tenderness. [] Extremities: No obvious deformity to left foot or ankle, there is palpation along medial aspect of left foot along metatarsal, normal range of motion. [] Neurologic: Alert and oriented X 3, normal motor function, normal sensory function, no focal deficits noted. [] Current Patient Data Vital Signs Vital Signs Date Time Temp Pulse Resp B/P (MAP) Pulse Ox O2 Delivery O2 Flow Rate FiO2 05/25/17 19:00 98.4 86 18 99 Room Air Lab Results Not performed EKG EKG Not performed[] Radiology/Procedures Radiology/Procedures 3 view x-rays of left foot and left ankle interpreted by me: No fractures, normal alignment, normal soft tissue Course & Med Decision Making Course & Med Decision Making Pertinent Labs and Imaging studies reviewed. (See chart for details) Patient's x-rays negative. The patient's symptoms appear consistent with medial foot sprain. Advised to continue with Tylenol and weightbearing as tolerated. Patient was provided with crutches to assist with ambulation. Advised follow-up with orthopedic surgery in one week if symptoms are not improving. Advised return emergency department for any worsening symptoms. Patient voiced understanding and in agreement with treatment plan. Dragon Disclaimer Dragon Disclaimer This electronic medical record was generated, in whole or in part, using a voice recognition dictation system. Departure Departure: Impression: Primary Impression: Sprain of left foot Disposition: HOME, SELF-CARE Condition: STABLE Referrals: ADDIE ASCENCIO MD (PCP) Patient Instructions: Foot Sprain Additional Instructions: Follow-up with your primary doctor in 1 week if symptoms are not improving. Return to emergency department for any worsening symptoms. Problem Qualifiers Primary Impression: Sprain of left foot Encounter type: initial encounter Qualified Codes: S93.602A - Unspecified sprain of left foot, initial encounter HARSHA TAO MD May 25, 2017 20:14
[2017-05-25 20:26] VITALS: BP 109/61
--- NOTE | 2017-05-26 07:31 | RAD ---
3 views left foot 05/25/2017 Clinical indication: Injury, fall, left foot and ankle pain. Comparison: None. Findings: No acute fracture or traumatic malalignment. Joint spaces are maintained. The visualized soft tissues are unremarkable. Normal bony alignment. Impression: No acute osseous abnormality.
--- NOTE | 2017-05-26 07:32 | RAD ---
3 views left ankle 05/25/2017 Clinical indication: Left ankle pain status post injury one week prior. Comparison: None. Findings: No acute fracture or traumatic malalignment. The joint spaces are maintained. Normal bony alignment. Ankle mortise and talar dome are maintained. Impression: No acute osseous abnormality.
[2017-05-26] MEDS ORDERED: HYDR-79 PO (20:29)
== END 2017-05-25 20:26 | disposition home or self-care (01) ==
LOC: ER 19:00
DX: S93.602A Unspecified sprain of left foot, initial encounter (principal); F32.9 Major depressive disorder, single episode, unspecified; F41.9 Anxiety disorder, unspecified; J45.909 Unspecified asthma, uncomplicated; G43.909 Migraine, unspecified, not intractable, without status migrainosus; F17.210 Nicotine dependence, cigarettes, uncomplicated; X58.XXXA Exposure to other specified factors, initial encounter; Y93.89 Activity, other specified; Y99.8 Other external cause status; Y92.89 Other specified places as the place of occurrence of the external cause
CPT/HCPCS: 73610; 73630; 99284

== ENCOUNTER 2017-05-26 20:03 | Emergency (ER) | payer OTHER ==
[~2017-05-26] VITALS: Ht 162.6 cm; Wt 62.6 kg
[2017-05-26 20:10] VITALS: BP 121/73
--- NOTE | 2017-05-26 20:12 | ED.ADGEN ---
Past History Past Medical History: Anxiety, Asthma, Depression, Migraines, Seizure, Other Past Surgical History: No Surgical History Smoking: Cigarettes Alcohol Use: None Drug Use: None Adult General Chief Complaint Chief Complaint " I stepped through my sister deck .. it was rotten and it gave away the other day... and twisted my Lt. ankle and Lt. foot... I was here and had x- rays.. but they did not find a fx... and they said to follow up... 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 Pt. seen previously on . Pt. still has marked pain. Pain on exam appears to be more in mid foot area. Distal neurovascular intact. There is pain on inversion of foot and pressure in mid transverse and longitudinal ligament of left foot. Positive foot squeeze. Some laxity on anterior drawer. Minimal malleolus tenderness on percussion. No upper leg tenderness. Capillary refill less than 2 seconds distally. Loading of toes exacerbates mid foot pain. Some edema. Reviewed x- rays from 05/25/2017. Review of Systems Review of Systems Constitutional: Denies fever or chills [] Eyes: Denies change in visual acuity, redness, or eye pain [] HENT: Denies nasal congestion or sore throat [] Respiratory: Denies cough or shortness of breath [] Cardiovascular: No additional information not addressed in [facility] [] GI: Denies abdominal pain, nausea, vomiting, bloody stools or diarrhea [] : Denies dysuria or hematuria [] Musculoskeletal: Denies back pain or joint pain []except findings in left foot and ankle as per history of present illness Integument: Denies rash or skin lesions [] Neurologic: Denies headache, focal weakness or sensory changes [] Endocrine: Denies polyuria or polydipsia [] All other systems were reviewed and found to be within normal limits, except as documented in this note. Family History Family History Noncontributory to current presentation Current Medications Current Medications Current Medications Medications (Trade) Dose Ordered Sig/Brant Start Time Stop Time Status Last Admin Dose Admin Hydrocodone Bitartrate/ Ibuprofen (Vicoprofen 7.5-200) 2 tab 1X ONCE 05/26/17 20:30 05/26/17 20:31 DC 05/26/17 20:46 2 TAB See nursing for home meds Allergies Allergies Allergies Coded Allergies Type Severity Reaction Last Updated Verified No Known Drug Allergies 05/26/17 No Physical Exam Physical Exam Constitutional: Well developed, well nourished, moderately acute distress, non- toxic appearance. [] HENT: Normocephalic, atraumatic, bilateral external ears normal, oropharynx moist, no oral exudates, nose normal. [] Eyes: PERRLA, EOMI, conjunctiva normal, no discharge. [] Neck: Normal range of motion, no tenderness, supple, no stridor. [] Cardiovascular:Heart rate regular rhythm, no murmur [] Lungs & Thorax: Bilateral breath sounds clear to auscultation [] Abdomen: Bowel sounds normal, soft, no tenderness, no masses, no pulsatile masses. [] Skin: Warm, dry, no erythema, no rash. [] Back: No tenderness, no CVA tenderness. [] Extremities: No tenderness, no cyanosis, no clubbing, ROM intact, no edema. [] Except findings and left foot and ankle Neurologic: Alert and oriented X 3, normal motor function, normal sensory function, no focal deficits noted. [] Psychologic: Affect normal, judgement normal, mood normal. [] Current Patient Data Vital Signs Vital Signs Date Time Temp Pulse Resp B/P (MAP) Pulse Ox O2 Delivery O2 Flow Rate FiO2 05/26/17 20:10 97.8 81 18 100 Room Air EKG EKG [] Radiology/Procedures Radiology/Procedures Reviewed x-rays from 05/25/2017 and radiologist's report[] Course & Med Decision Making Course & Med Decision Making Pertinent Labs and Imaging studies reviewed. (See chart for details) Ice, elevation, rest, Dae wrap and stiff shoe. Repeat x-ray in 2 weeks to evaluate for fracture callus. Follow-up with primary care. Follow-up with orthopedics. May use ibuprofen for pain not relieved by Tylenol and ibuprofen. Return if any concerns. [] Final Impression Final Impression 1. Ankle and Mid foot sprain[] Problems: Dragon Disclaimer Dragon Disclaimer This electronic medical record was generated, in whole or in part, using a voice recognition dictation system. HARIS LARA MD May 26, 2017 20:12
[2017-05-26] MEDS ORDERED: HYDR-79 PO (20:29)
[2017-05-26] MEDS ORDERED: HYDROcodon/IBUPROFEN 7.5/200MG 1 TAB TABLET PO ONE (20:30)
== END 2017-05-26 20:49 | disposition home or self-care (01) ==
LOC: ER 20:03
DX: S93.402A Sprain of unspecified ligament of left ankle, initial encounter (principal); S93.692A Other sprain of left foot, initial encounter; X50.1XXA Overexertion from prolonged static or awkward postures, initial encounter; Y93.89 Activity, other specified; Y99.8 Other external cause status; Y92.89 Other specified places as the place of occurrence of the external cause
CPT/HCPCS: 99284

== ENCOUNTER 2019-10-01 15:32 | Emergency (ER) | payer OTHER ==
[~2019-10-01] VITALS: Ht 162.6 cm; Wt 63.6 kg
[~2019-10-01 15:32] MED LIST changes: +ALBU2.5V8 INH; -ALBU8.5H8 INH; +HYDR-1179 PO; -HYDR-79 PO
[2019-10-01] MEDS ORDERED: MORPHINE SULFATE 2 MG/ML DISP.SYRIN. IV ONE (15:45)
[2019-10-01] MEDS ORDERED: ONDANSETRON PF 4 MG/2 ML VIAL. IVP ONE (15:45)
[2019-10-01] MEDS ORDERED: IV NORMAL SALINE 1,000ML 1,000 ML IV ONE (15:45)
[2019-10-01] MEDS ORDERED: MORPHINE SULFATE 4 MG/ML DISP.SYRIN. ONE (15:50)
--- NOTE | 2019-10-01 15:51 | PHYS DOC ---
Past History Past Medical History: Anxiety, Asthma, Depression, Migraines, Seizure, Other Past Surgical History: Other Smoking: Cigarettes Alcohol Use: None Drug Use: None General Adult EDM: Chief Complaint: ABDOMINAL PAIN HPI: HPI: 28-year-old female presents with pelvic pain worse on the right side. This pain started earlier today. It feels similar to when the patient has had ruptured ovarian cysts. She rates it a 7 out of 10. It is a deep cramping pain. She still has her appendix. She denies nausea, vomiting, fever, chills. She is taking Klonopin and drank 1 beer today. She has not taken any pain medication. She denies change in vaginal discharge. Review of Systems: Review of Systems: Constitutional: Denies fever or chills Eyes: Denies change in visual acuity HENT: Denies nasal congestion or sore throat Respiratory: Denies cough or shortness of breath Cardiovascular: Denies chest pain or edema GI: Lower abdominal pain. Denies nausea, vomiting, bloody stools or diarrhea : Denies dysuria Musculoskeletal: Denies back pain or joint pain Integument: Denies rash Neurologic: Denies headache, focal weakness or sensory changes Endocrine: Denies polyuria or polydipsia Lymphatic: Denies swollen glands Psychiatric: Denies depression or anxiety Heart Score: Risk Factors: Risk Factors: DM, Current or recent (<one month) smoker, HTN, HLP, family history of CAD, obesity. Risk Scores: Score 0 - 3: 2.5% MACE over next 6 weeks - Discharge Home Score 4 - 6: 20.3% MACE over next 6 weeks - Admit for Clinical Observation Score 7 - 10: 72.7% MACE over next 6 weeks - Early Invasive Strategies Current Medications: Current Meds: Current Medications Medications (Trade) Dose Ordered Sig/Brant Start Time Stop Time Status Last Admin Dose Admin Morphine Sulfate (Morphine 2mg Syringe) 2 mg 1X ONCE 10/01/19 15:45 10/01/19 15:46 UNV Ondansetron HCl (Zofran) 4 mg 1X ONCE 10/01/19 15:45 10/01/19 15:46 DC Sodium Chloride 1,000 ml @ 1,000 mls/hr 1X ONCE 10/01/19 15:45 10/01/19 16:44 Allergies: Allergies: Allergies Coded Allergies Type Severity Reaction Last Updated Verified No Known Drug Allergies 05/26/17 No Physical Exam: PE: Constitutional: Well developed, well nourished, no acute distress, non-toxic appearance. [] HENT: Normocephalic, atraumatic, bilateral external ears normal, oropharynx moist, no oral exudates, nose normal. [] Eyes: PERRLA, EOMI, conjunctiva normal, no discharge. [] Neck: Normal range of motion, no tenderness, supple, no stridor. [] Cardiovascular:Heart rate regular rhythm, no murmur [] Lungs & Thorax: Bilateral breath sounds clear to auscultation [] Abdomen: Bowel sounds normal, soft, mild suprapubic and right lower quadrant tenderness, no masses, no pulsatile masses. [] Skin: Warm, dry, no erythema, no rash. [] Back: No tenderness, no CVA tenderness. [] Extremities: No tenderness, no cyanosis, no clubbing, ROM intact, no edema. [] Neurologic: Alert and oriented X 3, normal motor function, normal sensory function, no focal deficits noted. [] Psychologic: Affect normal, judgement normal, mood normal. 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 Comparisons: None FINDINGS: Uterus measures 9.0 x 4.6 x 4.2 cm. IUD is noted within the endometrium. Right ovary measures 2.7 x 2.5 x 2.0 cm. Vascular flow noted within the right ovary. Left ovary measures 3.1 x 2.4 x 2.3 cm. Dominant follicle noted within the left ovary measuring up to 2.1 cm. Vascular flow noted within the left ovary. In the area of pain at the right lower quadrant shadowing bowel is seen. No free fluid identified. IMPRESSION: 1. IUD within the endometrium in appropriate position. 2. Dominant follicle in the left ovary. Normal sonographic appearance of the right ovary. 3. In the right lower quadrant at the area of pain air-filled bowel is noted. Electronically signed by: Mala Pelaez MD (10/01/2019 4:28 PM) [id number] DICTATED AND SIGNED BY: MALA PELAEZ MD DATE: 10/01/19 1628 CC: SOTO GROVER DO; ADDIE ASCENCIO MD ~ Exam: CT of abdomen and pelvis with contrast INDICATION: Right lower quadrant pain TECHNIQUE: Sequential axial images through the abdomen and pelvis obtained following the administration of 75 mL of Omni 300 IV contrast. Sagittal and coronal reformatted images were reconstructed from the axial data and reviewed. Comparisons: 07/07/2016 FINDINGS: Heart size is normal. No pericardial effusion. Visualized lung bases are clear. No pleural effusion. Liver, spleen, pancreas, gallbladder and adrenals are unremarkable. These demonstrate symmetric enhancement. No perinephric inflammation or hydronephrosis. No renal or ureteral calculi are identified. Bladder is distended and appears thin-walled. Uterus is nonenlarged. IUD is noted within the uterus. Large and small bowel are unremarkable. Appendix is normal. No free intra-abdominal air or fluid. No obstruction. Abdominal aorta has a normal course and caliber. Abdominal vasculature is patent. Extensive venous vessels noted in the pelvis. No enlarged intra-abdominal lymph nodes are identified. No suspicious osseous lesions or acute fractures. IMPRESSION: 1. Large serpiginous vessels noted in the pelvis, can be seen in the setting of pelvic congestion syndrome. Correlate with symptomatology. 2. Otherwise, no acute processes identified within the abdomen or pelvis. Exposure: One or more of the following in the visualized dose reduction techniques were utilized for this examination: 1. Automated exposure control 2. Adjustment of the MA and/or KV according to patient size 3. Use of iterative of reconstructive technique Electronically signed by: Mala Pelaez MD (10/01/2019 5:21 PM) [id number] DICTATED AND SIGNED BY: MALA PELAEZ MD DATE: 10/01/19 1721 CC: SOTO GROVER DO; ADDIE ASCENCIO MD ~ Course & Med Decision Making: Course & Med Decision Making Pertinent Labs and Imaging studies reviewed. (See chart for details) The patient's labs are unremarkable. Her urinalysis is negative for infection. The patient's ultrasound did not show any significant findings. See official report for more details. The CT scan did not show anything acute but mention the possibility of pelvic congestion syndrome. I discussed this with the patient. 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 She is stable for discharge at this time. [] Dragon Disclaimer: Dragon Disclaimer: This electronic medical record was generated, in whole or in part, using a voice recognition dictation system. Departure Departure: Impression: Primary Impression: Pelvic congestion syndrome Disposition: 01 HOME/RESIDENCE PRIOR TO ADM Condition: STABLE Referrals: ADDIE ASCENCIO MD (PCP) Patient Instructions: Pelvic Pain, Female, [id number] Justification of Admission: Justification of Admission: Justification of Admission Dx: N/A SOTO GROVER DO Oct 01, 2019 15:51
[2019-10-01 16:14] LABS: BASO # 0.1 x10^3/uL (0.0-0.2); BASO % 1 % (0-3); EOS # 0.1 x10^3/uL (0.0-0.7); EOS % 2 % (0-3); HEMATOCRIT 38.9 % (36.0-47.0); LYMPH # 1.8 x10^3/uL (1.0-4.8); LYMPH % 36 % (24-48); MEAN CORPUSCULAR HEMOGLOBIN 31 pg (25-35); MEAN CORPUSCULAR HGB CONC 33 g/dL (31-37); MEAN CORPUSCULAR VOLUME 94 fL (79-100); MONO # 0.5 x10^3/uL (0.0-1.1); MONO % 9 % (0-9); NEUT # 2.5 x10^3uL (1.8-7.7); NEUT % 52 % (31-73); PLATELET COUNT 221 x10^3/uL (140-400); RED BLOOD COUNT 4.14 x10^6/uL (3.50-5.40); RED CELL DISTRIBUTION WIDTH 13.3 % (11.5-14.5); WHITE BLOOD COUNT 4.9 x10^3/uL (4.0-11.0)
[2019-10-01 16:17] LABS: CALCIUM 9.3 mg/dL (8.5-10.1); GFR 65.1; POTASSIUM 3.6 mmol/L (3.5-5.1)
[2019-10-01 16:22] LABS: ALBUMIN 4.2 g/dL (3.4-5.0); ALBUMIN/GLOBULIN RATIO 1.3 (1.0-1.7); TOTAL BILIRUBIN 0.4 mg/dL (0.2-1.0); TOTAL PROTEIN 7.5 g/dL (6.4-8.2)
--- NOTE | 2019-10-01 16:31 | RAD ---
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 Comparisons: None FINDINGS: Uterus measures 9.0 x 4.6 x 4.2 cm. IUD is noted within the endometrium. Right ovary measures 2.7 x 2.5 x 2.0 cm. Vascular flow noted within the right ovary. Left ovary measures 3.1 x 2.4 x 2.3 cm. Dominant follicle noted within the left ovary measuring up to 2.1 cm. Vascular flow noted within the left ovary. In the area of pain at the right lower quadrant shadowing bowel is seen. No free fluid identified. IMPRESSION: 1. IUD within the endometrium in appropriate position. 2. Dominant follicle in the left ovary. Normal sonographic appearance of the right ovary. 3. In the right lower quadrant at the area of pain air-filled bowel is noted. Electronically signed by: Mala Newton MD (10/01/2019 4:28 PM) [id number]
[2019-10-01] MEDS ORDERED: IOHEXOL 300 MG/ML 75 ML VIAL. IV ONE (16:45)
--- NOTE | 2019-10-01 17:23 | RAD ---
Exam: CT of abdomen and pelvis with contrast INDICATION: Right lower quadrant pain TECHNIQUE: Sequential axial images through the abdomen and pelvis obtained following the administration of 75 mL of Omni 300 IV contrast. Sagittal and coronal reformatted images were reconstructed from the axial data and reviewed. Comparisons: 07/07/2016 FINDINGS: Heart size is normal. No pericardial effusion. Visualized lung bases are clear. No pleural effusion. Liver, spleen, pancreas, gallbladder and adrenals are unremarkable. These demonstrate symmetric enhancement. No perinephric inflammation or hydronephrosis. No renal or ureteral calculi are identified. Bladder is distended and appears thin-walled. Uterus is nonenlarged. IUD is noted within the uterus. Large and small bowel are unremarkable. Appendix is normal. No free intra-abdominal air or fluid. No obstruction. Abdominal aorta has a normal course and caliber. Abdominal vasculature is patent. Extensive venous vessels noted in the pelvis. No enlarged intra-abdominal lymph nodes are identified. No suspicious osseous lesions or acute fractures. IMPRESSION: 1. Large serpiginous vessels noted in the pelvis, can be seen in the setting of pelvic congestion syndrome. Correlate with symptomatology. 2. Otherwise, no acute processes identified within the abdomen or pelvis. Exposure: One or more of the following in the visualized dose reduction techniques were utilized for this examination: 1. Automated exposure control 2. Adjustment of the MA and/or KV according to patient size 3. Use of iterative of reconstructive technique Electronically signed by: Mala Newton MD (10/01/2019 5:21 PM) [id number]
[2019-10-01 18:35] LABS: BACTERIA,URINE 0 /HPF (0-FEW); BILIRUBIN,URINE NEG (NEG); CLARITY,URINE CLEAR; COLOR,URINE STRAW; GLUCOSE,URINE NEG (NEG); NITRITE,URINE NEG (NEG); RBC,URINE RARE /HPF (0-2); SQUAMOUS EPITHELIAL CELL,UR FEW /LPF; UROBILINOGEN,URINE 0.2 mg/dL (0.2 mg/dL); WBC,URINE RARE /HPF (0-4)
== END 2019-10-01 17:59 | disposition home or self-care (01) ==
LOC: ER 15:32
DX: N94.89 Other specified conditions associated with female genital organs and menstrual cycle (principal); R10.31 Right lower quadrant pain; J45.909 Unspecified asthma, uncomplicated; G43.909 Migraine, unspecified, not intractable, without status migrainosus; F17.210 Nicotine dependence, cigarettes, uncomplicated
CPT/HCPCS: 36415; 74177; 76856; 80053; 81001; 81025; 85025; 96374; 96375; 99285; J2270; J2405; J7030; Q9967

== ENCOUNTER → 2019-11-24 | Outpatient (CLI) | payer OTHER ==
[2019-10-01 15:42] VITALS: BP 126/74
== END | disposition home or self-care (01) ==
LOC: LAB 17:11
PROVIDERS: ATTEND Internal Medicine Cardiovascular Disease
DX: R05 Cough (principal); J45.909 Unspecified asthma, uncomplicated; R06.02 Shortness of breath; Z20.828 Contact with and (suspected) exposure to other viral communicable diseases
CPT/HCPCS: U0003-CS

== ENCOUNTER → 2021-02-05 | Outpatient (CLI) | payer OTHER ==
[2019-10-01 15:42] VITALS: BP 126/74
[~2021-02-05] MED LIST changes: +POTA-121 PO; -POTA20TA4 PO
== END ==
LOC: LAB 15:13
PROVIDERS: ATTEND Internal Medicine Cardiovascular Disease
DX: R05.9 Cough, unspecified (principal); R50.9 Fever, unspecified; R06.02 Shortness of breath; J02.9 Acute pharyngitis, unspecified; M79.10 Myalgia, unspecified site; R51.9 Headache, unspecified; R53.81 Other malaise; R11.0 Nausea; Z20.822 Contact with and (suspected) exposure to COVID-19
CPT/HCPCS: U0003